=== PATIENT | female | born 1980 | race Caucasian/White ===

== ENCOUNTER → 2016-11-11 | Outpatient (CLI) | payer SELFPAY ==
--- NOTE | 2016-11-11 11:41 | US ---
STUDY: RIGHT UPPER QUADRANT ABDOMINAL ULTRASOUND HISTORY: Reflux. Right upper quadrant pain. Bloating, nausea, vomiting. Comparison: July 17, 2015. Technique: Multiple rogers scale and color flow Doppler images of the right upper quadrant were obtain ed. Findings: The liver is normal in size and echotexture. There is no evidence of focal mass or intrahepatic lisa e duct dilatation. The portal vein is normal in appearance and demonstrates hepatopetal flow. The gallbladder is contracted. No stones are identified. There is no evidence of pericholecystic flu id. Gallbladder wall thickness measures 1.9 mm. The common bile duct measures 3.1 mm. The right kidney is normal in size and echogenicity measuring 11.4 x 7.9 x 5.5 cm. Right renal mellissa x measures 1.5 cm. There is no evidence of focal parenchymal mass or cyst. There is no evidence of nephrolithiasis or hydronephrosis. The pancreas is normal. IMPRESSION: 1. Contracted gallbladder. Otherwise, normal right upper quadrant ultrasound. Reported By:
== END ==
LOC: RAD 10:10
PROVIDERS: ATTEND Nurse Practitioner Family
DX: K90.49 Malabsorption due to intolerance, not elsewhere classified (principal); R11.2 Nausea with vomiting, unspecified; R10.13 Epigastric pain; R10.11 Right upper quadrant pain; K21.9 Gastro-esophageal reflux disease without esophagitis
CPT/HCPCS: 76705; 78227

== ENCOUNTER 2017-04-14 17:25 | Observation (INO) | payer SELFPAY ==
[2017-04-14] MEDS ORDERED: PHENERGAN INJ 25 MG IV PRN ×2 (18:19→18:57)
--- NOTE | 2017-04-14 18:24 | DR.H&P ---
H&P - History & Physical for Day of: H&P Date: 04/14/17 - Chief Complaint Chief Complaint: Fever, abdominal pain, shortness of breath, nausea vomiting and cough. - History of Present Illness History of Present Illness: patient is a 36-year-old white female who was a direct admit from Dr. Graff's office. Patient had symptoms of upper abdominal pain nausea vomiting, shortness of breath cough and fever. Patient states she had abdominal pain over the weekend felt somewhat improved this morning. Patient states if she tries to eat she has severe abdominal plain bloody and nausea. Patient states onset of fever was around name today and severe pain to right lung area and right upper quadrant. Patient states she was treated for bronchitis approximately one week ago took a round of antibiotics and did feel improved. Plan to admit patient, pneumonia protocol, gallbladder ultrasound IV hydration and IV antibiotics and respiratory consult. - Past Medical History Past Medical History: GERD - Past Surgical History Additional Surgical History: breast augmentation - Social History Does patient currently use any type of tobacco product: Yes Have you used tobacco products in the last 12 months: Yes Type of Tobacco Use: Cigarettes Does any household member use tobacco: No Alcohol Use: None Drug Use: None - Review of Systems Constitutional: Fever, Malaise Eyes: No Symptoms Reported Respiratory: Shortness of Breath Cardiovascular: Palpitations Gastrointestinal: Abdominal Pain Genitourinary: No Symptoms Reported Musculoskeletal: Other (bilateral rib pain) Skin: No Symptoms Reported Neurological: No Symptoms Reported Oriented: Normal Eyes: Normal Ear: Normal Nose: Normal Throat: Normal Respiratory: RLL Diminished, LLL Diminished Cardiovascular: Normal : Normal Auscultation: Bowel Sounds: Normal Tenderness: RUQ, Epigastric Skin: Decreased Turgur Musculoskeletal: Normal Psychiatric: Anxiety Affect: Anxious Speech Pattern: Clear, Appropriate - Assessment/Plan (1) Bronchopneumonia Status: Acute Plan: plan to admit for further evaluation of fever, nausea vomiting and cough and shortness of breath. We'll start on pneumonia protocol, IV antibiotics, chest x-ray on admission,respiratory therapy and IV hydration. Pain and nausea control. A.m. gallbladder ultrasound, obtain d-dimer (2) Fever Status: Acute (3) Nausea & vomiting Status: Acute (4) RUQ pain Status: Acute (5) SOB (shortness of breath) Status: Acute
[2017-04-14] MEDS ORDERED: TUSSIONEX PENNKINETIC SUSP PO PRN (18:57)
[2017-04-14] MEDS ORDERED: NS 1/2 1000 ML IV 1,000 ML IV SCH (19:00)
[2017-04-14 19:06] VITALS: BMI 24.7
[2017-04-14 19:09] LABS: BASOPHILS % (AUTO) 0.5 % (0.2-1.0); EOSINOPHILS # (AUTO) 0.1 x10^3/uL (0.0-0.2); EOSINOPHILS % (AUTO) 0.6 % (0.9-2.9); HEMATOCRIT 39.1 % (36.0-47.0); HEMOGLOBIN 13.4 g/dL (12.0-16.0); LYMPHOCYTES # (AUTO) 2.4 X10^3/uL (1.3-2.9); LYMPHOCYTES % (AUTO) 25.6 % (21.0-51.0); MEAN CORPUSCULAR HGB CONC 34.3 g/dL (33.0-35.0); MEAN CORPUSCULAR VOLUME 90.5 fL (80.0-100.0); MEAN PLATELET VOLUME 8.7 fL (7.4-11.0); MONOCYTES # (AUTO) 0.6 x10^3/uL (0.3-0.8); MONOCYTES % (AUTO) 6.7 % (0.0-13.0); NEUTROPHILS # (AUTO) 6.2 x10^3/uL (2.2-4.8); NEUTROPHILS % (AUTO) 66.6 % (42.0-75.0); PLATELET COUNT 207 X10^3/uL (150.0-450.0); RED BLOOD COUNT 4.32 X10^6/uL (3.5-5.4); RED CELL DISTRIBUTION WIDTH 13.1 % (11.6-16.5); WHITE BLOOD COUNT 9.3 X10^3/uL (3.6-10.0)
[2017-04-14 19:20] LABS: ALANINE AMINOTRANSFERASE 18 Units/L (12-78); ALBUMIN 3.9 g/dL (3.4-5.0); ALKALINE PHOSPHATASE 57 Units/L (46-116); ASPARTATE AMINO TRANSFERASE 16 Units/L (15-37); BLOOD UREA NITROGEN 13 mg/dL (7-18); CALCIUM 8.5 mg/dL (8.5-10.1); CARBON DIOXIDE 29.4 mmol/L (21-32); CHLORIDE 102 mmol/L (98-107); COR NA(FOR HYPERGLY) 138 mmol/L (136-145); CREATININE 0.85 mg/dL (0.55-1.02); SODIUM 138 mmol/L (136-145); TOTAL PROTEIN 7.1 g/dL (6.4-8.2); eGFR BLACK RACES > 60 (>60); eGFR NON BLACK RACES > 60 (>60)
[2017-04-14] MEDS ORDERED: DUONEB 0.5 MG/3 MG ONE (19:21)
[2017-04-14] MEDS ORDERED: SALINE 3% 15 ML NEB TX ONE (19:21)
[2017-04-14] MEDS ORDERED: SALINE 3% 15 ML NEB TX NEB ONE (19:25)
[2017-04-14] MEDS: DUONEB 0.5 MG/3 MG NEB SCH ×2 (19:26→20:57)
[2017-04-14] MEDS ORDERED: NS 1/2 1000 ML IV 1,000 ML IV ONE (19:36)
[2017-04-14] MEDS: ZITHROMAX INJ 500 MG VIAL 500 MG in NS 250 ML IV 250 ML IV SCH (19:43)
[2017-04-14] MEDS: ROBITUSSIN DM PO SCH (21:00)
--- NOTE | 2017-04-14 21:55 | RAD ---
HISTORY: Fever, abdominal pain Study: Acute abdominal series Comparison: None Findings: The trachea is midline. The cardiac silhouette is unremarkable. The lungs are clear without focal i nfiltrate or effusion. The bony thorax is unremarkable. Flat plate and upright evaluation of the abdomen demonstrates a normal bowel gas pattern. No pneumope ritoneum is identified.. No pathological soft tissue mass or calcification can be observed. The bon y structures are grossly intact. There is an IUD identified within the pelvis. IMPRESSION: 1. No acute cardiopulmonary disease. 2. No evidence for acute abdominal pathology identified. Reported By:
[2017-04-15] MEDS: DUONEB 0.5 MG/3 MG NEB SCH ×3 (01:09→09:27)
[2017-04-15 07:23] VITALS: BP 121/72
[2017-04-15] MEDS: ROBITUSSIN DM PO SCH ×2 (08:13→13:40)
[2017-04-15] MEDS: ZITHROMAX INJ 500 MG VIAL 500 MG in NS 250 ML IV 250 ML IV SCH (08:13)
[2017-04-15] MEDS ORDERED: NORCO 7.5/325 MG TAB PO PRN (08:23)
[2017-04-15] MEDS ORDERED: TORADOL 30 MG VIAL IVP SCH (09:00)
[2017-04-15] MEDS ORDERED: PROTONIX INJ 40 MG VIAL IVP SCH (12:00)
== END 2017-04-15 13:40 | disposition home or self-care (01) ==
LOC: ICU 17:25
PROVIDERS: ADMIT Internal Medicine; ATTEND Internal Medicine
DX: J20.8 Acute bronchitis due to other specified organisms (principal); R10.84 Generalized abdominal pain; R06.02 Shortness of breath; R50.9 Fever, unspecified; R19.7 Diarrhea, unspecified; K21.9 Gastro-esophageal reflux disease without esophagitis; R11.2 Nausea with vomiting, unspecified
CPT/HCPCS: 36415; 74022; 80053; 85025; 85378; 87040; 94640; A4222; C9113; G0378; J0456; J7620